=== PATIENT | male | born 1955 | race Caucasian/White ===

== ENCOUNTER → 2017-05-11 | Day surgery (SDC) | payer OTHER ==
[~2017-05-11] VITALS: Ht 193 cm; Wt 117.0 kg
--- NOTE | 2017-05-12 11:45 | Operative Report ---
Operative/Inv Procedure Report Surgery Date: 05/11/17 Name of Procedure: Repair of torn Achilles tendon left Pre-Operative Diagnosis: Left Achilles tendon tear Post-Operative Diagnosis: Same Estimated Blood Loss: scant Surgeon/Assistant Service Manager: CARISA DALLAS,SINTIA Anesthesia: general endotracheal tube Drains: None Specimens: None Tourniquet: 42 minutes Complications: None Condition: Stable Operative Indication: Patient is a 61-year-old man who fell down some stairs at work injuring his left ankle. He was found to have findings consistent with an Achilles tendon tear. We discussed risks benefits and expectations of surgical and nonsurgical options which included recurrent tear, infection, injury to blood vessel or nerve, anesthesia risks, weakness. He wished to proceed with surgical treatment. Operative/Procedure Note Note: Patient was brought to the operating room and transferred to the operating table. Once under appropriate anesthesia patient was placed into a prone position. All bony prominences well-padded. Genitals were checked to make sure there was no undue pressure. Left lower extremity was prepped and draped in standard fashion. Preoperative IV antibiotics were given prophylactically. Leg was elevated exsanguinated and tourniquet was inflated. Incision was along the medial aspect of the Achilles. This was centered over the anticipated tear site. Incision was taken directly down to the Achilles tendon sheath. There was some scar tissue within the tear site. This was debrided. The proximal and distal stumps were identified and then tendon stitch was repaired using a #5 FiberWire proximally and distally. These were opposed while relieving any tension on the repair site. I then also harvested the plantaris tendon and weaved it through the repair site. The repair was reinforced and smoothed over with use of 0 Vicryl suture. Sheath was then repaired with interrupted 2-0 Vicryl suture. This was all done after copious irrigation of the wound. The subcutaneous case tissue was closed with 3-0 Vicryl followed by skin closure with interrupted nylon sutures. Appropriate just his were applied the patient was awakened and taken the recovery room after a splint was applied with the foot in plantar flexion to relieve tension on the repair site. Prior to closure I did test the repair site with dorsiflexion to about neutral and there was no significant tension on the repair. Discharge Disposition: PACU
== END ==
LOC: STS 02:10
DX: S86.012A Strain of left Achilles tendon, initial encounter (principal); W10.9XXA Fall (on) (from) unspecified stairs and steps, initial encounter; I10 Essential (primary) hypertension; I25.10 Atherosclerotic heart disease of native coronary artery without angina pectoris; F17.200 Nicotine dependence, unspecified, uncomplicated
CPT/HCPCS: J0690; J2250